=== PATIENT | male | born 2000 | race Caucasian/White ===

== ENCOUNTER 2019-07-11 13:21 | Inpatient (IN) ==
[2019-07-11 14:32] LABS: Basophils # (auto) 0.03 K/uL (0-0.2); Basophils % (auto) 0.4 %; Eosinophils # (auto) 0.11 K/uL (0-0.5); Eosinophils % (auto) 1.6 %; Hematocrit (blood only) 42.9 % (42-52); Hemoglobin 14.9 g/dL (14.0-18.0); Lymphocytes # (auto) 2.26 K/uL (1.2-3.4); Lymphocytes % (auto) 33.2 %; Mean Corpuscular Hgb Conc 34.7 g/dL (32-36); Mean Corpuscular Volume 86.3 fL (80-100); Mean Platelet Volume 10.7 fL (7.4-10.4); Monocytes % (auto) 8.8 %; Platelet Count 196 K/uL (130-400); RDW Coefficient of Variation 12.6 % (11.5-14.5); RDW Standard Deviation 39.9 fL (36.4-46.3); Red Blood Count 4.97 M/uL (4.7-6.1)
[2019-07-11 14:48] LABS: Albumin Level 4.9 gm/dl (3.4-5.0); BUN Creatinine Ratio 22.3 (10-20); Calcium 9.3 mg/dl (8.5-10.1); Est GFR (Non-African American) 107.9
[2019-07-11 14:59] LABS: Albumin Globulin Ratio 1.5 (0.9-2); Bilirubin,Total 1.2 mg/dl (0.2-1); Globulin 3.3 gm/dl (2.5-4.0); Total Protein 8.2 gm/dl (6.4-8.2)
[2019-07-11 15:00] LABS: Acetaminophen < 2 ug/ml (10-30); Salicylate < 1.7 mg/dl (2.8-20)
[2019-07-11 15:44] LABS: Appearance Urine Clear (Clear); Bilirubin Urine Negative (Negative); Blood Urine Negative (Negative); Color Urine Yellow; Glucose Urine UA Negative (Negative); Ketones Urine Trace (Negative); Leukocyte Esterase Urine Negative (Negative); Nitrite Urine Negative (Negative); Protein Urine Negative (Negative); Specific Gravity Urine 1.011 (1.000-1.030); Urobilinogen Urine Negative (Negative)
[2019-07-11 16:25] LABS: Amphetamines+Metham, Urine Neg (Neg); Barbiturates, Urine Neg (Neg); Benzodiazepine, Urine Neg (Neg); Cocaine, Urine Neg (Neg); MDMA (Ecstacy), Urine Neg (Neg); Methadone, Urine Neg (Neg); Opiate, Urine Neg (Neg); Phencyclidine, Urine Neg (Neg)
--- NOTE | 2019-07-11 16:47 | Emergency Department Note ---
Entered by Tammie Souza acting as a scribe for History of Present Illness General Chief complaint: Mental Health Evaluation Stated complaint: SUICIDAL THOUGHTS ECT Time Seen by Provider: 07/11/19 13:31 Source: patient History of Present Illness Provider complaint: mental evaluation Onset (ago): week(s) 1 Location: head Pain Consistency: + intermittent Maximum Pain Intensity: 0 Quality: + other (mental health ) Associated symptoms: + denies other symptoms The patient is a 18 y/o male w/ PMHx of depression and SI who presents to the ED for a mental health evaluation. The patient states that within the past week he has been feeling very depressed and having SI but this has been intermittent for the past year. The nurse notes that he was at [facility] recently. The patient notes that in the week he took a Xanax and hoped he would be able to jump off his balcony but did not go through with it and fell asleep with a knife in his hand. Last self-harm attempt was 3 days ago when he cut his ankle. Patient states that he is a student at [employer] but has not been stressed on campus. He notes that he used a juul, marijuana, Xanax, acid, and alcohol. The patient denies any other symptoms. He notes that he is sleeping but not eating much. Home Medications Home Medications Medication Instructions Recorded Confirmed Type clindamycin-benzoyl peroxide 1 applic TOPICAL DAILY 07/11/19 07/11/19 History tretinoin 1 applic TOPICAL HS 07/11/19 07/11/19 History Allergies Allergy/AdvReac Type Severity Reaction Status Date / Time poison sudarshan extract Allergy Intermediate Rash Verified 07/11/19 13:53 Bees Allergy Intermediate Redness of Uncoded 07/11/19 13:53 Skin Past Med/Surg History Medical History Depression Suicidal ideation Social History Preferred Language: Citizen Of [place] Feels Safe at Home: Yes Smoking Status: Never smoker Review of Systems See HPI for pertinent positives & negatives. and A total of 10 systems reviewed and were otherwise negative Physical Exam Vital Signs Vital Signs - 24 hr 07/11/19 13:26 07/11/19 15:07 Temperature 36.9 C Temperature Source Oral Sepsis Recent Fever Within 48 Hours No Sepsis Action Taken by Nursing No Action Required Pulse Rate 94 H Pulse Rate [Finger] 76 Pulse Rhythm Regular Pulse Strength Normal Respiratory Rate 16 20 Respiratory Effort / Characteristics Non-Labored Respiratory Depth Normal Respiratory Pattern Regular Blood Pressure 135/70 Blood Pressure [Right Arm] 142/63 H Blood Pressure Mean 91 Blood Pressure Mean [Right Arm] 89 Blood Pressure Position Sitting Pulse Oximetry 100 100 Oxygen Delivery Method Room Air Room Air GENERAL: Well appearing, well nourished, NAD, non-toxic. EYE EXAM: Normal conjunctiva. PERRL, no anisocoria and EOM's grossly intact w/o pain. OROPHARYNX: Moist mucus membranes. Grossly normal dentition. NECK: Supple, no nuchal rigidity, no adenopathy, non-tender. No signs of meningismus. LUNGS: Clear to auscultation. Normal chest wall mechanics. HEART: NSR, no MRG. ABDOMEN: Abdomen soft, non-tender, normo-active bowel sounds, no masses, no rebound or guarding. BACK: No CVA TTP. SKIN: No rashes and no bruising. UPPER EXTREMITIES: Upper extremities are grossly normal. LOWER EXTREMITIES: No pitting edema. No calf pain. NEURO EXAM: A&O x3, cranial nerves II-XII grossly intact, normal speech, moves all 4 extremities on command w/o issue. PSYCH: Positive SI, no HI and no AVH. Course 1357: Past medical records reviewed. The patient was evaluated in room A06. A complete history and physical exam was performed. 1629: The patient was admitted for inpatient psychiatric treatment. Medical Decision Making Medical Records Attestation: I reviewed the patient's medical records. Home Medications Current Medication List: was personally reviewed by ca Laboratory Data Attestation: I reviewed the patient's lab results. Result diagrams: 07/11/19 14:18 07/11/19 14:18 Lab Results 07/11/19 07/11/19 07/11/19 Range/Units 14:18 14:18 14:18 WBC 6.80 (4.8-10.8) K/uL RBC 4.97 (4.7-6.1) M/uL Hgb 14.9 (14.0-18.0) g/dL Hct 42.9 (42-52) % MCV 86.3 (80-100) fL MCH 30.0 (25-34) pg MCHC 34.7 (32-36) g/dL RDW Std Deviation 39.9 (36.4-46.3) fL RDW Coeff of Jamar 12.6 (11.5-14.5) % Plt Count 196 (130-400) K/uL MPV 10.7 H (7.4-10.4) fL Immature Gran % (Auto) 0.0 % Neut % (Auto) 56.0 % Lymph % (Auto) 33.2 % [place] % (Auto) 8.8 % Eos % (Auto) 1.6 % Baso % (Auto) 0.4 % Immature Gran # (Auto) 0.00 (0.00-0.02) K/uL Neut # (Auto) 3.80 (1.4-6.5) K/uL Lymph # (Auto) 2.26 (1.2-3.4) K/uL [place] # (Auto) 0.60 H (0.11-0.59) K/uL Eos # (Auto) 0.11 (0-0.5) K/uL Baso # (Auto) 0.03 (0-0.2) K/uL Sodium 139 (136-145) mmol/L Potassium 4.0 (3.5-5.1) mmol/L Chloride 104 (98-107) mmol/L Carbon Dioxide 27 (21-32) mmol/L Anion Gap 8.0 (3-11) BUN 22 H (7-18) mg/dl Creatinine 1.00 (0.6-1.4) mg/dl Est Cr Clr Drug Dosing 99.0 ml/min Est GFR ( Amer) 125.0 Est GFR (Non-Af Amer) 107.9 BUN/Creatinine Ratio 22.3 H (10-20) Glucose 89 (70-99) mg/dl Calcium 9.3 (8.5-10.1) mg/dl Total Bilirubin 1.2 H (0.2-1) mg/dl AST 19 (15-37) U/L ALT 20 (12-78) U/L Alkaline Phosphatase 43 L (45-117) U/L Total Protein 8.2 (6.4-8.2) gm/dl Albumin 4.9 (3.4-5.0) gm/dl Globulin 3.3 (2.5-4.0) gm/dl Albumin/Globulin Ratio 1.5 (0.9-2) TSH 1.110 (0.300-4.500) uIu/ml Urine Color Urine Appearance (Clear) Urine pH (4.5-7.5) Ur Specific [place] (1.000-1.030) Urine Protein (Negative) Urine Glucose (UA) (Negative) Urine Ketones (Negative) Urine Blood (Negative) Urine Nitrite (Negative) Urine Bilirubin (Negative) Urine Urobilinogen (Negative) Ur Leukocyte Esterase (Negative) Salicylates < 1.7 L (2.8-20) mg/dl Urine Opiates Screen (Neg) Ur Methadone, Qual (Neg) Acetaminophen < 2 L (10-30) ug/ml Urine Barbiturates (Neg) Ur Phencyclidine (PCP) (Neg) U Amphetamin/Meth Scrn (Neg) MDMA (Ecstasy) Screen (Neg) U Benzodiazepines Scrn (Neg) Ur Cocaine Metabolite (Neg) U Marijuana (THC) Screen (Neg) Ethyl Alcohol mg/dL (0-3) mg/dl 07/11/19 07/11/19 07/11/19 Range/Units 14:18 15:33 15:33 WBC (4.8-10.8) K/uL RBC (4.7-6.1) M/uL Hgb (14.0-18.0) g/dL Hct (42-52) % MCV (80-100) fL MCH (25-34) pg MCHC (32-36) g/dL RDW Std Deviation (36.4-46.3) fL RDW Coeff of Jamar (11.5-14.5) % Plt Count (130-400) K/uL MPV (7.4-10.4) fL Immature Gran % (Auto) % Neut % (Auto) % Lymph % (Auto) % [place] % (Auto) % Eos % (Auto) % Baso % (Auto) % Immature Gran # (Auto) (0.00-0.02) K/uL Neut # (Auto) (1.4-6.5) K/uL Lymph # (Auto) (1.2-3.4) K/uL [place] # (Auto) (0.11-0.59) K/uL Eos # (Auto) (0-0.5) K/uL Baso # (Auto) (0-0.2) K/uL Sodium (136-145) mmol/L Potassium (3.5-5.1) mmol/L Chloride (98-107) mmol/L Carbon Dioxide (21-32) mmol/L Anion Gap (3-11) BUN (7-18) mg/dl Creatinine (0.6-1.4) mg/dl Est Cr Clr Drug Dosing ml/min Est GFR ( Amer) Est GFR (Non-Af Amer) BUN/Creatinine Ratio (10-20) Glucose (70-99) mg/dl Calcium (8.5-10.1) mg/dl Total Bilirubin (0.2-1) mg/dl AST (15-37) U/L ALT (12-78) U/L Alkaline Phosphatase (45-117) U/L Total Protein (6.4-8.2) gm/dl Albumin (3.4-5.0) gm/dl Globulin (2.5-4.0) gm/dl Albumin/Globulin Ratio (0.9-2) TSH (0.300-4.500) uIu/ml Urine Color Yellow Urine Appearance Clear (Clear) Urine pH 6.0 (4.5-7.5) Ur Specific [place] 1.011 (1.000-1.030) Urine Protein Negative (Negative) Urine Glucose (UA) Negative (Negative) Urine Ketones Trace H (Negative) Urine Blood Negative (Negative) Urine Nitrite Negative (Negative) Urine Bilirubin Negative (Negative) Urine Urobilinogen Negative (Negative) Ur Leukocyte Esterase Negative (Negative) Salicylates (2.8-20) mg/dl Urine Opiates Screen Neg (Neg) Ur Methadone, Qual Neg (Neg) Acetaminophen (10-30) ug/ml Urine Barbiturates Neg (Neg) Ur Phencyclidine (PCP) Neg (Neg) U Amphetamin/Meth Scrn Neg (Neg) MDMA (Ecstasy) Screen Neg (Neg) U Benzodiazepines Scrn Neg (Neg) Ur Cocaine Metabolite Neg (Neg) U Marijuana (THC) Screen Pos H (Neg) Ethyl Alcohol mg/dL < 3.0 (0-3) mg/dl Blood Pressure Blood Pressure Findings: Elevated blood pressure Blood Pressure Disposition: Referred to patients primary care provider MDM Narrative differential includes toxic ingestions, self-mutilation, suicidal ideation, suicide attempt, depression. The patient is a 18 y/o male w/ PMHx of depression and SI who presents to the ED for a mental health evaluation. Patient was seen and evaluated the bedside. The patient did present with suicidal ideation substances. The patient is a student. The patient states he has been making to his classes. The patient has had poor appetite. Patient was medically cleared and seen by psych case reviewer. Patient was referred to [facility] and the patient was admitted for inpatient psychiatric treatment. Impression & Plan Suicidal ideation, Depressed mood, Substance abuse Discharge Plan Visit Data Chief Complaint: Mental Health Evaluation Stated Complaint: SUICIDAL THOUGHTS ECT ED Provider: Joao Dunbar Discharge Problem: Suicidal ideation, Depressed mood, Substance abuse Patient Disposition: Admitted As Inpatient Forms Stand Alone Forms: My [facility] Prescriptions Prescriptions: No Action tretinoin 0.025 % Cream 1 applic TOPICAL HS RF: 0 clindamycin-benzoyl peroxide 1-5 % Gel 1 applic TOPICAL DAILY RF: 0 Referrals Referrals: PCP,NO [Primary Care Provider] - The scribe's documentation has been prepared under my direction and personally reviewed by me in its entirety. I confirm that the note above accurately reflects all work, treatment, procedures, and medical decision making performed by me.
[2019-07-11] MEDS ORDERED: BISMUTH SUBSALICYLATE PER ML OMNICELL CHARGE PO PRN (17:28)
[2019-07-11] MEDS ORDERED: ALUMINUM/MAGNESIUM SUSP 30 ML UDC PO PRN (17:28)
[2019-07-11] MEDS ORDERED: MAGNESIUM HYDROXIDE SUSP 30 ML UDC PO PRN (17:28)
[2019-07-11] MEDS ORDERED: SODIUM CHLORIDE 0.65% NA SOLN 45 ML (OCEAN) PRN (17:28)
[2019-07-11] MEDS ORDERED: ACETAMINOPHEN 325 MG TAB PO PRN (17:28)
--- NOTE | 2019-07-12 09:42 | History & Physical ---
Date of Service July 12, 2019 Impression / Recommendations Impression The patient is a 18-year-old man who reports that he has been feeling depressed for approximately the past year and a half. He presents with fairly typical symptoms of depression including depressed mood, apathy, anergia, anhedonia, psychosocial withdrawal, irritable mood, insomnia, and thoughts of suicide. Although he acknowledges that recently he has been having nearly daily thoughts of suicide, these thoughts have generally been passive until about a week ago at which point he began to think specifically about killing himself by jumping off of an [facility]. The patient reports that he took a 2 mg "bar" of Xanax in an effort to give himself the encouraged to follow through on the plan to jump, but subsequently recognized that he, in fact, did not want to kill himself and decided not to jump. He notes that subsequent to this event he has not had further specific thoughts of suicide and notes that when he learned from the experience was that he, in fact, does want to live. Several factors may have contributed to the patient's depression. He cites an occurrence that happened approximately shelter through his freshman year where he and he discovered his good friend and roommate after the good friend and roommate had deliberately taken an overdose of Xanax (2 mg "bars"). He tells us that he was badly shaken and even traumatized by the experience of finding the roommate and friend unconscious and then having to call for help and contact the other young man's parents. Also, during his freshman year the patient was charged with underage drinking and had subsequent legal entanglements associated with this circumstance. In fact, he is still actively working to have the subsequent conviction expunged. Also, possibly contributing, is the fact that the patient is smoking marijuana, reportedly in limited amounts, on a daily basis at bedtime to help him sleep. 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 There is a family history of depression, and the patient indicates that his mother takes paroxetine for depression (and, possibly, anxiety) and he believes, but cannot confirm, that his mother has responded favorably to paroxetine. He has been in individual therapy with a local therapist that is based at [facility]," but evidently has not been referred, or else has not agreed to a psychiatric evaluation. He is not taking any psychiatric medications. Given the fact that the symptoms of depression have been present for a year and a half without relief, and after several months of individual therapy, I believe the antidepressant medications are indicated. Because of the patient's apparent positive association of paroxetine with recovery, I will start the patient on paroxetine 10 mg daily and titrate as indicated. Material risks and anticipated benefits of paroxetine were reviewed with the patient and he indicated understanding. (1) Suicidal ideation: 07/12/19 -The patient reports that he has been having daily or nearly daily thoughts of suicide, and within the past week developed a specific plan to jump off of a balcony. However, he tells us that he came to realize that he could not bring himself to commit suicide and wants to live. Today, he tells us that he is not having thoughts of suicide and we note that he is future oriented. -We are recommending at least 2 or 3 more days of psychiatric hospitalization in order to monitor the patient's mood, begin him on antidepressant medications, and further assess his actual risk for suicide given the behaviors that led to the psychiatric hospitalization. Present on Admission?: Yes (2) Substance abuse: 07/12/19 -The patient has a history of a conviction for underage drinking incurred about a year and a half ago. He tells us that he is continuing to consume alcohol 2 days a week (weekends) with friends, even though he is still underage. He has difficulty estimating his alcohol consumption amount, but appears to drink to the point of intoxication. He notes that he has no trouble stopping during the school/work week. -The patient also tells us that he has been using marijuana on a nightly basis ("about 2 tokes") in order to help himself fall asleep. He tells us that he does not use marijuana recreationally, other than occasionally. Present on Admission?: Yes (3) Depressed mood: 07/12/19 -The patient reports that he began to experience symptoms of depression approximately a year and a half ago, but the prior to that he has never been depressed. He does, however, report a family history of depression (mother). -He has found individual therapy to be somewhat helpful, but notes that his depression has continued to worsen over time. Accordingly, we are recommending the administration of an antidepressant medication. Given that his mother seems to have responded, or at least the patient believes that his mother may have responded to paroxetine, we will again paroxetine 10 mg daily and titrate as tolerated. Present on Admission?: Yes Inventory Assets Strengths: Seeks recovery. Supportive family. Supportive friends. Intelligent. Career oriented. Needs: Recovery from depression. Resolution of suicidal thoughts. Abstinence from alcohol and marijuana use. Risk Factors Assessment Family history of depression. School and work related stressors. (The patient is full-time and is also working part-time to help support himself.) Persistent depression. Reluctance to reach out to others regarding his depression and thoughts of suicide. On the other hand, the patient reports that he does have a good relationship with his therapist and is independently seeking treatment. 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 He give a 1.5 year history of depression, and was admitted on 07/11/19 17:29 on a 201 voluntary agreement because of suicidal thoughts with plan. Chief Complaint "I told my therapist something that I wish that I hadn't" History of Present Illness The patient is a 18-year-old man, currently a raj at [employer], who was admitted to the inpatient psychiatric emergency room through the emergency department where he presented at the recommendation of his outpatient therapist. The patient notes that he had told the outpatient therapist that 2 days earlier he had deliberately taken a "bar" of Xanax (2 mg) in order to give give himself encouraged to commit suicide by jumping off a balcony. The patient acknowledges that he has been having nearly daily thoughts of suicide, but formulated the plan fairly recently. Subsequent to taking the Xanax the patient realized that he did not want to end his life, change his mind, and simply went to sleep. 2 days later, he told his therapist of the suicidal thoughts and of the above referenced event, and it was determined that he should be psychiatrically hospitalized for further evaluation, observation and treatment. According to the patient, he has not had previous episodes of depression, although he notes that his mother has told him that she suspects that he may have suffered from depression while in raj high school. The patient, himself, notes that he does not believe that he was depressed at the time and feels that he had not been depressed until approximately a year and a half ago. He notes that in the second semester of his freshman year at [employer] he began to notice symptoms of depression that included initial insomnia, anhedonia, anergia, mood irritability, apathy, and psychosocial withdrawal. A precipitating factor, according the patient, was possibly the fact that around this time he had found a roommate (also a good friend) to be unconscious after the patient had been alerted by a third democrat that the roommate may have taken an overdose of Xanax. It was later determined that the roommate had, in fact, taken several 2 mg "bars" of Xanax. The patient handled the situation by immediately calling his roommate's parents, and they arrived and arranged for a psychiatric hospitalization. He notes that he was traumatized by the event and it was shortly thereafter that he began to notice depressed mood and other symptoms, as described above. The patient reports that the symptoms of his depression worsened gradually over the subsequent year and a half. Beginning last summer, he entered outpatient psychotherapy at a local program known as "[facility] Despite his persistent symptoms of depression, and despite the fact that his mother is being treated for depression (and anxiety) the patient evidently was not referred for a psychiatric evaluation and has not been given antidepressant medications. Possibly complicating the clinical picture is the fact that the patient acknowledges that he smokes marijuana "a couple tokes" nightly in order to sleep. He also acknowledges that he drinks alcohol with friends twice a week and, in fact, still has a pending underage drinking charge incurred in his freshman year at [employer]. Past Psychiatric History Previous Psych History: The patient has been followed by a therapist at a local organization known as "[facility]" over the course of the current summer. He reports that he has had no previous contact with the mental health community. He also reports that he has never taken any psychiatric medications. This is his first psychiatric hospitalization. There is no history of rosie, hypomania, OCD, anxious distress apart suffered from symptoms of depression, and no known history of panic episodes. Current Psychiatric Diagnosis: None Outpatient Services: The patient is followed by a therapist at a local organization known as, [facility] Previous Psych Admissions: The patient reports that this is his first psychiatric hospitalization Do You Have Access To A Gun?: No History of Previous Suicide Attempt: No (The patient reports that he has had "almost daily" passive thoughts of suicide without plan or intent until recently.) Past Medication Trials: None. Allergies Allergy/AdvReac Type Severity Reaction Status Date / Time poison sudarshan extract Allergy Intermediate Rash Verified 07/11/19 13:53 Bees Allergy Intermediate Redness of Uncoded 07/11/19 13:53 Skin Home Medications Home Medications Medication Instructions Recorded Confirmed Type clindamycin-benzoyl peroxide 1 applic TOPICAL DAILY 07/11/19 07/11/19 History tretinoin 1 applic TOPICAL HS 07/11/19 07/11/19 History Family History Family History of: Depression (Mother. The patient reports that he believes his mother takes "Paxil" for depression. He says that he cannot speak to the medications efficacy in her case but he has noticed that her depression has improved.), Anxiety and Doesn't Know Alcohol History Hx of Alcohol Use Over the Past 12 Months: Yes (Social drinking, weekends) AUDIT Total Score: 9 Smoking Use Have You Smoked or Used Tobacco Products in the Last 30 Days: Yes tobacco type: e-cigarettes Smoking Status: Current every day smoker Smoking packs per day: 1 Substance History Hx of Prescription Med Misuse Over the Past 12 Months: Yes (Hx of occassional Xanax use) Hx of Over the Counter Med Misuse Over the Past 12 Months: No Hx of Inhalent Misuse Over the Past 12 Months: No Hx of Organic Substance Use Over the Past 12 Months: Yes (Smokes marijuana daily) Hx of Illegal Substances/Street Drug Use Over Past 12 Months: No Problems as a Result of Past Substance Use: Arrested and Other (Daily use of marijuana, reportedly in limited quantities.) Problems as a Result of Past Substance Use Comments: The patient was charged with underage drinking and is currently working to have the charge expunged. Personal History Living Arrangements: Apartment Living Arrangements Comments: The patient tells me that he lives with several roommates, and that his roommates are good friends. Childhood: The patient tells us that he was born and raised in [place], [place]. His parents were not , but lived together for appro ximately 1 year after the patient was born and then . The patient has no recollection of his father being in the home, but he has maintained a fairly close relationship with his father and, more recently, with his father's (the patient's stepmother). The patient was raised by his mother, and he has 2 younger sisters who are still at home. 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 The friend survived, but the patient was traumatized by the experience. 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 Physical Exam Psychiatric: Orientation: alert and oriented x 3 Apperance: appropriately dressed Eye Contact: + fair eye contact The patient shifts his physical position frequently during the evaluation. Speech: normal rate/rhythm/volume of speech Affect: + anxious affect Mood: + depressed mood Thought Process: goal directed thought process, linear/logical thought process and clear/coherent thought process Thought Content: reality based without delusions Patient reports nearly daily suicidal thoughts, but has not had a suicidal plan, nor has he had suicidal intent until fairly recently. He notes that today, 3 days after he had contemplated jumping from a [facility] in order to commit suicide, and then realized that he did not actually want to , he tells us that he has no further thoughts of suicide Homicidal Thoughts: denies homicidal thoughts Hallucinations: no auditory hallucinations Cognition: recent memory grossly intact, remote memory grossly intact, attention grossly intact and language grossly intact Estimated Intelligence: + above average estimated intelligence Insight: + fair insight Judgement: + limited judgement The patient recognizes that he is suffering from major depression. He also understands his need for treatment and is willing to cooperate. At the same time, however, he seems to be determined not to tell his parents and, in particular, his mother that he is in the hospital. He explains this by saying that he does not want to "upset her," even though she is identified as 1 of his significant sources of support. Vital Signs (Past 24 Hours): Last Vital Signs Temp 36.5 C 07/12/19 06:40 Pulse 93 H 07/12/19 06:41 Resp 18 07/12/19 06:40 BP 116/63 07/12/19 06:41 Pulse Ox 96 07/11/19 17:45 Results & Data Laboratory Results Laboratory Results - last 24 hr 07/11/19 07/11/19 07/11/19 14:18 14:18 14:18 WBC 6.80 RBC 4.97 Hgb 14.9 Hct 42.9 MCV 86.3 MCH 30.0 MCHC 34.7 RDW Std Deviation 39.9 RDW Coeff of Jamar 12.6 Plt Count 196 MPV 10.7 H Immature Gran % (Auto) 0.0 Neut % (Auto) 56.0 Lymph % (Auto) 33.2 [place] % (Auto) 8.8 Eos % (Auto) 1.6 Baso % (Auto) 0.4 Immature Gran # (Auto) 0.00 Neut # (Auto) 3.80 Lymph # (Auto) 2.26 [place] # (Auto) 0.60 H Eos # (Auto) 0.11 Baso # (Auto) 0.03 Sodium 139 Potassium 4.0 Chloride 104 Carbon Dioxide 27 Anion Gap 8.0 BUN 22 H Creatinine 1.00 Est Cr Clr Drug Dosing 99.0 Est GFR ( Amer) 125.0 Est GFR (Non-Af Amer) 107.9 BUN/Creatinine Ratio 22.3 H Glucose 89 Calcium 9.3 Total Bilirubin 1.2 H AST 19 ALT 20 Alkaline Phosphatase 43 L Total Protein 8.2 Albumin 4.9 Globulin 3.3 Albumin/Globulin Ratio 1.5 TSH 1.110 Urine Color Urine Appearance Urine pH Ur Specific Story Urine Protein Urine Glucose (UA) Urine Ketones Urine Blood Urine Nitrite Urine Bilirubin Urine Urobilinogen Ur Leukocyte Esterase Salicylates < 1.7 L Urine Opiates Screen Ur Methadone, Qual Acetaminophen < 2 L Urine Barbiturates Ur Phencyclidine (PCP) U Amphetamin/Meth Scrn MDMA (Ecstasy) Screen U Benzodiazepines Scrn Ur Cocaine Metabolite U Marijuana (THC) Screen U Marijuana THC Carboxy Ethyl Alcohol mg/dL 07/11/19 07/11/19 07/11/19 14:18 15:33 15:33 WBC RBC Hgb Hct MCV MCH MCHC RDW Std Deviation RDW Coeff of Jamar Plt Count MPV Immature Gran % (Auto) Neut % (Auto) Lymph % (Auto) [place] % (Auto) Eos % (Auto) Baso % (Auto) Immature Gran # (Auto) Neut # (Auto) Lymph # (Auto) [place] # (Auto) Eos # (Auto) Baso # (Auto) Sodium Potassium Chloride Carbon Dioxide Anion Gap BUN Creatinine Est Cr Clr Drug Dosing Est GFR ( Amer) Est GFR (Non-Af Amer) BUN/Creatinine Ratio Glucose Calcium Total Bilirubin AST ALT Alkaline Phosphatase Total Protein Albumin Globulin Albumin/Globulin Ratio TSH Urine Color Yellow Urine Appearance Clear Urine pH 6.0 Ur Specific Story 1.011 Urine Protein Negative Urine Glucose (UA) Negative Urine Ketones Trace H Urine Blood Negative Urine Nitrite Negative Urine Bilirubin Negative Urine Urobilinogen Negative Ur Leukocyte Esterase Negative Salicylates Urine Opiates Screen Neg Ur Methadone, Qual Neg Acetaminophen Urine Barbiturates Neg Ur Phencyclidine (PCP) Neg U Amphetamin/Meth Scrn Neg MDMA (Ecstasy) Screen Neg U Benzodiazepines Scrn Neg Ur Cocaine Metabolite Neg U Marijuana (THC) Screen Pos H U Marijuana THC Carboxy Ethyl Alcohol mg/dL < 3.0 07/11/19 15:33 WBC RBC Hgb Hct MCV MCH MCHC RDW Std Deviation RDW Coeff of Jamar Plt Count MPV Immature Gran % (Auto) Neut % (Auto) Lymph % (Auto) [place] % (Auto) Eos % (Auto) Baso % (Auto) Immature Gran # (Auto) Neut # (Auto) Lymph # (Auto) [place] # (Auto) Eos # (Auto) Baso # (Auto) Sodium Potassium Chloride Carbon Dioxide Anion Gap BUN Creatinine Est Cr Clr Drug Dosing Est GFR ( Amer) Est GFR (Non-Af Amer) BUN/Creatinine Ratio Glucose Calcium Total Bilirubin AST ALT Alkaline Phosphatase Total Protein Albumin Globulin Albumin/Globulin Ratio TSH Urine Color Urine Appearance Urine pH Ur Specific Story Urine Protein Urine Glucose (UA) Urine Ketones Urine Blood Urine Nitrite Urine Bilirubin Urine Urobilinogen Ur Leukocyte Esterase Salicylates Urine Opiates Screen Ur Methadone, Qual Acetaminophen Urine Barbiturates Ur Phencyclidine (PCP) U Amphetamin/Meth Scrn MDMA (Ecstasy) Screen U Benzodiazepines Scrn Ur Cocaine Metabolite U Marijuana (THC) Screen U Marijuana THC Carboxy Pending Ethyl Alcohol mg/dL Current Inpatient Medications Current Inpatient Medications: Current Inpatient Medications Acetaminophen (Tylenol) 650 mg PO Q4H PRN PRN Reason: Headache or Minor Fever Stop: 08/10/19 17:27 Al Hydrox/Mg Hydrox/Simethicone (Maalox) 30 ml PO Q4H PRN PRN Reason: GI Upset Stop: 08/10/19 17:27 Bismuth Subsalicylate (Kaopectate) 15 ml PO PRN PRN PRN Reason: Loose Stool Stop: 08/10/19 17:27 Hydroxyzine HCl (Vistaril) 50 mg PO HSZ PRN PRN Reason: Insomnia Stop: 08/10/19 17:27 Hydroxyzine HCl (Vistaril) 25 mg PO Q4H PRN PRN Reason: Anxiety Stop: 08/10/19 17:27 Magnesium Hydroxide (Milk Of Magnesia) 30 ml PO DAILY PRN PRN Reason: Constipation Stop: 08/10/19 17:27 Paroxetine HCl (Paroxetine Hcl) 10 mg PO DAILY TREVON Stop: 08/11/19 09:29 Sodium Chloride (Orland Nasal) 1 - 2 sprays NA PRN PRN PRN Reason: Nasal Dryness/Congestion Stop: 08/10/19 17:27 CPT Code CPT Code Initial Hospital Care: [id number]
[2019-07-12] MEDS: PARoxetine HCl 10 MG TAB PO SCH (10:24)
[2019-07-13] MEDS: PARoxetine HCl 10 MG TAB PO SCH (09:14)
--- NOTE | 2019-07-13 19:18 | Psychiatric Progress Note ---
Date of Service July 13, 2019 Impression / Recommendations Impression The patient is a 18-year-old man who reports that he has been feeling depressed for approximately the past year and a half. He appears to be minimizing aspects oasis depression and his anxiety while acknowledging his usage of substances and his aims to pull back from doing so. He is rather ambivalent about the pail being rx'd and indicated aim to stop the med after discharge. However he does seem to be taking in psychoeducation and might be willing to consider staying on the med with sba underwriter not sure at this point. motivational interviewing and psychoeducation interventions seem to be helping with therapeutic alliance and with having pt consider next steps in his treatment. PT was aiming for only monthly appts with therapist though (bea concerns a rationale), with sba underwriter not sure if he is willing to see therapist more regularly. Pt appears to be wanting to know involve parents and is refusing family meeting with parents or others at this time (1) Suicidal ideation: 07/12/19 -The patient reports that he has been having daily or nearly daily thoughts of suicide, and within the past week developed a specific plan to jump off of a balcony. However, he tells us that he came to realize that he could not bring himself to commit suicide and wants to live. Today, he tells us that he is not having thoughts of suicide and we note that he is future oriented. -We are recommending at least 2 or 3 more days of psychiatric hospitalization in order to monitor the patient's mood, begin him on antidepressant medications, and further assess his actual risk for suicide given the behaviors that led to the psychiatric hospitalization. (2) Substance abuse: 07/12/19 -The patient has a history of a conviction for underage drinking incurred about a year and a half ago. He tells us that he is continuing to consume alcohol 2 days a week (weekends) with friends, even though he is still underage. He has difficulty estimating his alcohol consumption amount, but appears to drink to the point of intoxication. He notes that he has no trouble stopping during the school/work week. -The patient also tells us that he has been using marijuana on a nightly basis ("about 2 tokes") in order to help himself fall asleep. He tells us that he does not use marijuana recreationally, other than occasionally. (3) Depressed mood: 07/12/19 -The patient reports that he began to experience symptoms of depression approximately a year and a half ago, but the prior to that he has never been depressed. He does, however, report a family history of depression (mother). -He has found individual therapy to be somewhat helpful, but notes that his depression has continued to worsen over time. Accordingly, we are recommending the administration of an antidepressant medication. Given that his mother seems to have responded, or at least the patient believes that his mother may have re sponded to paroxetine, we will again paroxetine 10 mg daily and titrate as tolerated. 07/13/19 pt willing to continue paxil while on the unit, but wanting to delay increase to 20mg for now ("perhaps a week or so into taking it") while earlier in assessment indicated aim to stop it after discharge, sba underwriter not sure if pt is more open to taking it after today's assessment. aftercare as planned with aim for [employer] psychiatric med management appts and aim for therapy appts with [facility], encouraging more frequent therapy appts. motivational interviewing and addressingpt's presentation and how substance usage can be adding to his struggles depsite its attempts to help him Inventory Assets Strengths: Seeks recovery. Supportive family. Supportive friends. Intelligent. Career oriented. Needs: Recovery from depression. Resolution of suicidal thoughts. Abstinence from alcohol and marijuana use. 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 Review of Systems Sleep Information Total Hours of Sleep: 7.25 Sleep Comments: requested and received an hs prn dose of vistaril for sleep aid Meal Information Percent Meal Consumed - Breakfast: 100 Percent Meal Consumed - Lunch: 100 Percent Meal Consumed - Dinner: 100 Subjective Subjective Patient was seen & assessed and interval progress reviewed with nursing and social work. Pt expressed aiming to be discharge soon. He denied SI today. He endorsed tendency to get anxious and overwhelmed and that could possibly be depressed as well and that this leads to not taking care of thing he needs to be doing including school work and then feels worse and more stressed. He endorsed that last semester would take Xanax about 3 times a week to settle anxiety but would sometimes take with alcohol to get more intoxicated as well. He did not use during the summer break (only once in March ) and first reported usage since March was on Monday when had SI and was thinking the xanax usage might help him be able t o work up the nerve to attempt suicide. HE is weary that now that his source for Xanax is back in town that he might continue to use it despite p reference to not do so. He shared how has been wanting to pull back on cannabis usage and uses less intensely in general but still uses each evening with attempt to help him settle down. He endorsed using alcohol to get intoxicated more then to settle anxiety. He shared that he was aiming to stop paxil after discharge. He has been seeing his [facility] since May with this past appt being his 4th session and he was aiming for monthly appts per pt today. Pt denied SI today. He denied HI,, denied hypomanic symptoms, denied s/e to Paxil to date. Physical Exam Psychiatric Orientation: alert and oriented x 3 Apperance: appropriately dressed Eye Contact: + fair eye contact Speech: normal rate/rhythm/volume of speech Affect: + anxious affect Mood: + depressed mood Thought Process: goal directed thought process, linear/logical thought process and clear/coherent thought process Thought Content: reality based without delusions Homicidal Thoughts: denies homicidal thoughts Hallucinations: no auditory hallucinations Cognition: recent memory grossly intact, remote memory grossly intact, attention grossly intact and language grossly intact Estimated Intelligence: + above average estimated intelligence Insight: + fair insight Judgement: + limited judgement Vital Signs (Past 24 Hours) Last Vital Signs Temp 36.5 C 07/13/19 06:28 Pulse 84 07/13/19 06:28 Resp 14 07/13/19 06:28 BP 109/60 07/13/19 06:28 Pulse Ox 96 07/11/19 17:45 Results & Data Current Inpatient Medications Current Inpatient Medications: Current Inpatient Medications Acetaminophen (Tylenol) 650 mg PO Q4H PRN PRN Reason: Headache or Minor Fever Stop: 08/10/19 17:27 Al Hydrox/Mg Hydrox/Simethicone (Maalox) 30 ml PO Q4H PRN PRN Reason: GI Upset Stop: 08/10/19 17:27 Bismuth Subsalicylate (Kaopectate) 15 ml PO PRN PRN PRN Reason: Loose Stool Stop: 08/10/19 17:27 Hydroxyzine HCl (Vistaril) 50 mg PO HSZ PRN PRN Reason: Insomnia Stop: 08/10/19 17:27 Last Admin: 07/12/19 22:11 Dose: 50 mg Documented by: Hydroxyzine HCl (Vistaril) 25 mg PO Q4H PRN PRN Reason: Anxiety Stop: 08/10/19 17:27 Magnesium Hydroxide (Milk Of Magnesia) 30 ml PO DAILY PRN PRN Reason: Constipation Stop: 08/10/19 17:27 Paroxetine HCl (Paroxetine Hcl) 10 mg PO DAILY TREVON Stop: 08/11/19 09:29 Last Admin: 07/13/19 09:14 Dose: 10 mg Documented by: Sodium Chloride ([place] Nasal) 1 - 2 sprays NA PRN PRN PRN Reason: Nasal Dryness/Congestion Stop: 08/10/19 17:27 Mental Health & Subst Abuse Tx Psychiatrist Name of Psychiatrist: Daniel Rubio Psychiatrist's Date of Appointment with Psychiatrist: 07/30/19 Time of Appointment with Psychiatrist: 9am Psychiatric Appointment Comment: [address] [facility] [place] [id number] Therapist Name of Therapist: [facility] Therapist's Therapy Appointment Comment: [id number] [facility] [id number] Jig Builder Name of Jig Builder: [facility] Phone Number for Jig Builder: [phone] Date of Appointment with Jig Builder: 07/16/19 Time of Appointment with Jig Builder: 11:30am Case Management Appointment [facility]: [address] [facility] [id number] Post Discharge Appointments Primary Care Physician Name Of Family Doctor: [facility] Time of Appointment with PCP: Follow up as needed. Provider Appointment Comment: [address], [place] [address] Contact Information Discharge Discharge Address: [address] [place] [address], [place] [address] CPT Code CPT Code 90687 and 89043 16+ minutes supportive therapy as above
[2019-07-14] MEDS: PARoxetine HCl 10 MG TAB PO SCH (08:41)
--- NOTE | 2019-07-14 11:55 | Discharge Summary ---
Date of Service July 14, 2019 History of Present Illness The patient is a 18-year-old man, currently a [employer] at [employer], who was admitted to the inpatient psychiatric emergency room through the emergency department where he presented at the recommendation of his outpatient therapist. The patient notes that he had told the outpatient therapist that 2 days earlier he had deliberately taken a "bar" of Xanax (2 mg) in order to give give himself encouraged to commit suicide by jumping off a balcony. The patient acknowledges that he has been having nearly daily thoughts of suicide, but formulated the plan fairly recently. Subsequent to taking the Xanax the patient realized that he did not want to end his life, change his mind, and simply went to sleep. 2 days later, he told his therapist of the suicidal thoughts and of the above referenced event, and it was determined that he should be psychiatrically hospitalized for further evaluation, observation and treatment. According to the patient, he has not had previous episodes of depression, although he notes that his mother has told him that she suspects that he may have suffered from depression while in [employer]. The patient, himself, notes that he does not believe that he was depressed at the time and feels that he had not been depressed until approximately a year and a half ago. He notes that in the second semester of his freshman year at [employer] he began to notice symptoms of depression that included initial insomnia, anhedonia, anergia, mood irritability, apathy, and psychosocial withdrawal. A precipitating factor, according the patient, was possibly the fact that around this time he had found a roommate (also a good friend) to be unconscious after the patient had been alerted by a third democrat that the roommate may have taken an overdose of Xanax. It was later determined that the roommate had, in fact, taken several 2 mg "bars" of Xanax. The patient handled the situation by immediately calling his roommate's parents, and they arrived and arranged for a psychiatric hospitalization. He notes that he was traumatized by the event and it was shortly thereafter that he began to notice depressed mood and other symptoms, as described above. The patient reports that the symptoms of his depression worsened gradually over the subsequent year and a half. Beginning last summer, he entered outpatient psychotherapy at a local program known as [facility] Despite his persistent symptoms of depression, and despite the fact that his mother is being treated for depression (and anxiety) the patient evidently was not referred for a psychiatric evaluation and has not been given antidepressant medications. Possibly complicating the clinical picture is the fact that the patient acknowledges that he smokes marijuana "a couple tokes" nightly in order to sleep. He also acknowledges that he drinks alcohol with friends twice a week and, in fact, still has a pending underage drinking charge incurred in his freshman year at college. Physical Exam Vital Signs (Past 24 Hours) Last Vital Signs Temp 36.6 C 07/14/19 06:26 Pulse 78 07/14/19 06:26 Resp 16 07/14/19 06:26 BP 116/63 07/14/19 06:26 Pulse Ox 96 07/11/19 17:45 Principal Diagnosis Major Depressive Disorder Psychiatric Data Day of Discharge Assessment Bandar has been without Suicidal ideation, is forward thinking and addressing his stressors . He has increased his willingness to give paxil a full trial to see how it works for him. He is preferring to stay at 10mg a day for now till seen at [place] for psychiatric followup with potential to raise dose to 20mg a day at that time. He has been using Vistaril 50mg at bedtime to help fall asleep is open to taking this as needed once discharge., carina since was using cannabis to help with sleep previously. He was educated about using it at 25-50mg for insomnia concerns and for 25mg dose for acute severe anxiety. He is less depressed and less anxious and more motivated and is interested in continuing psychotherapy appts and is willing to have more frequent therapy aptps. He is willing to engage with mother about his attending therapy appts and to see if she can help out some with the copay expense. He is seeking discharge today and is considered safe and appropriate to be discharged. He is seeking to not use xanax and to pull away from his cannabis usage. He is aiming to contunint o address his constructive and non constructive coping strategies (including substance use) with his psychotherapist and his outpt psychiatric providers Transition of Care Transition Of Care Record: was reviewed with the patient Advance Directives Advance Directives Information Provided: Yes Advance Directives: No Mental Health Advance Directive: No Advance Directives on File: No Living Will: No Power of Transportation Sales Consultant: No Advance Directives Reason:: Declines as Mental Health Visit. 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 Relationships: Yes Supportive Family: Yes Good Rapport with Provider: Yes Absence of Any Risk Factors Above: No Tobacco Cessation at Discharge Tobacco Cessation Medication Prescribed at Discharge: Not Applicable/Non-Smoker Total Time Total Time Spent: Greater Than 30 Minutes Discharge Data Lab Results 07/11/19 07/11/19 07/11/19 14:18 14:18 14:18 WBC 6.80 RBC 4.97 Hgb 14.9 Hct 42.9 MCV 86.3 MCH 30.0 MCHC 34.7 RDW Std Deviation 39.9 RDW Coeff of Jamar 12.6 Plt Count 196 MPV 10.7 H Immature Gran % (Auto) 0.0 Neut % (Auto) 56.0 Lymph % (Auto) 33.2 [place] % (Auto) 8.8 Eos % (Auto) 1.6 Baso % (Auto) 0.4 Immature Gran # (Auto) 0.00 Neut # (Auto) 3.80 Lymph # (Auto) 2.26 [place] # (Auto) 0.60 H Eos # (Auto) 0.11 Baso # (Auto) 0.03 Sodium 139 Potassium 4.0 Chloride 104 Carbon Dioxide 27 Anion Gap 8.0 BUN 22 H Creatinine 1.00 Est Cr Clr Drug Dosing 99.0 Est GFR ( Amer) 125.0 Est GFR (Non-Af Amer) 107.9 BUN/Creatinine Ratio 22.3 H Glucose 89 Calcium 9.3 Total Bilirubin 1.2 H AST 19 ALT 20 Alkaline Phosphatase 43 L Total Protein 8.2 Albumin 4.9 Globulin 3.3 Albumin/Globulin Ratio 1.5 TSH 1.110 Urine Color Urine Appearance Urine pH Ur Specific [place] Urine Protein Urine Glucose (UA) Urine Ketones Urine Blood Urine Nitrite Urine Bilirubin Urine Urobilinogen Ur Leukocyte Esterase Salicylates < 1.7 L Urine Opiates Screen Ur Methadone, Qual Acetaminophen < 2 L Urine Barbiturates Ur Phencyclidine (PCP) U Amphetamin/Meth Scrn MDMA (Ecstasy) Screen U Benzodiazepines Scrn Ur Cocaine Metabolite U Marijuana (THC) Screen Ethyl Alcohol mg/dL 07/11/19 07/11/19 07/11/19 14:18 15:33 15:33 WBC RBC Hgb Hct MCV MCH MCHC RDW Std Deviation RDW Coeff of Jamar Plt Count MPV Immature Gran % (Auto) Neut % (Auto) Lymph % (Auto) [place] % (Auto) Eos % (Auto) Baso % (Auto) Immature Gran # (Auto) Neut # (Auto) Lymph # (Auto) [place] # (Auto) Eos # (Auto) Baso # (Auto) Sodium Potassium Chloride Carbon Dioxide Anion Gap BUN Creatinine Est Cr Clr Drug Dosing Est GFR ( Amer) Est GFR (Non-Af Amer) BUN/Creatinine Ratio Glucose Calcium Total Bilirubin AST ALT Alkaline Phosphatase Total Protein Albumin Globulin Albumin/Globulin Ratio TSH Urine Color Yellow Urine Appearance Clear Urine pH 6.0 Ur Specific [place] 1.011 Urine Protein Negative Urine Glucose (UA) Negative Urine Ketones Trace H Urine Blood Negative Urine Nitrite Negative Urine Bilirubin Negative Urine Urobilinogen Negative Ur Leukocyte Esterase Negative Salicylates Urine Opiates Screen Neg Ur Methadone, Qual Neg Acetaminophen Urine Barbiturates Neg Ur Phencyclidine (PCP) Neg U Amphetamin/Meth Scrn Neg MDMA (Ecstasy) Screen Neg U Benzodiazepines Scrn Neg Ur Cocaine Metabolite Neg U Marijuana (THC) Screen Pos H Ethyl Alcohol mg/dL < 3.0 Hospital Course (1) Suicidal ideation: 07/12/19 -The patient reports that he has been having daily or nearly daily thoughts of suicide, and within the past week developed a specific plan to jump off of a balcony. However, he tells us that he came to realize that he could not bring himself to commit suicide and wants to live. Today, he tells us that he is not having thoughts of suicide and we note that he is future oriented. -We are recommending at least 2 or 3 more days of psychiatric hospitalization in order to monitor the patient's mood, begin him on antidepressant medications, and further assess his actual risk for suicide given the behaviors that led to the psychiatric hospitalization. (2) Substance abuse: 07/12/19 -The patient has a history of a conviction for underage drinking incurred about a year and a half ago. He tells us that he is continuing to consume alcohol 2 days a week (weekends) with friends, even though he is still underage. He has difficulty estimating his alcohol consumption amount, but appears to drink to the point of intoxication. He notes that he has no trouble stopping during the school/work week. -The patient also tells us that he has been using marijuana on a nightly basis ("about 2 tokes") in order to help himself fall asleep. He tells us that he does not use marijuana recreationally, other than occasionally. (3) Depressed mood: 07/12/19 -The patient reports that he began to experience symptoms of depression approximately a year and a half ago, but the prior to that he has never been depressed. He does, however, report a family history of depression (mother). -He has found individual therapy to be somewhat helpful, but notes that his depression has continued to worsen over time. Accordingly, we are recommending the administration of an antidepressant medication. Given that his mother seems to have responded, or at least the patient believes that his mother may have responded to paroxetine, we will again paroxetine 10 mg daily and titrate as tolerated. 07/13/19 pt willing to continue paxil while on the unit, but wanting to delay increase to 20mg for now ("perhaps a week or so into taking it") while earlier in assessment indicated aim to stop it after discharge, press writer not sure if pt is more open to taking it after today's assessment. aftercare as planned with [facility] psychiatric med management appts and aim for therapy appts with [facility], encouraging more frequent therapy appts. motivational interviewing and addressingpt's presentation and how substance usage can be adding to his struggles depsite its attempts to help him Mental Health & Subst Abuse Tx Psychiatrist Name of Psychiatrist: Daniel Spicer - Amarilis Rubio Psychiatrist's Date of Appointment with Psychiatrist: 07/30/19 Time of Appointment with Psychiatrist: 9am Psychiatric Appointment Comment: [id number] [facility] [id number] Therapist Name of Therapist: [facility] - Graciela Therapist's Therapy Appointment Comment: [address] [facility] [address] Instructional Manager Name of Instructional Manager: [facility] - Pat Phone Number for Instructional Manager: [phone] Date of Appointment with Instructional Manager: 07/16/19 Time of Appointment with Instructional Manager: 11:30am Case Management Appointment Comment: [address] [facility], [place] [address] Post Discharge Appointments Primary Care Physician Name Of Family Doctor: [facility] Time of Appointment with PCP: Follow up as needed. Provider Appointment Comment: [address] , [place] [address] Smoking Cessation Counseling Tobacco Cessation Medication Prescribed at Discharge: Not Applicable/Non-Smoker Contact Information Discharge Discharge [address] [address] [place] [address], [place] [address] Discharge Plan Discharge Items Patient Disposition: Home - Self-Care Reason For Visit: MDD Discharge Diagnosis: Major Depressive Disorder, Single, Severe Discharge Goals: Improve disease control and Improve function Activity: Resume your previous activity Non-emergency contact: Primary Care Provider, Psychiatrist and Therapist Call non-emergency contact if: you have any medication questions and your symptoms worsen Follow-up/Referrals: PCP,NO [Primary Care Provider] - Diet: Regular Addtl Provider Instructions: SPECIAL CARE INSTRUCTIONS: 1. Follow through with your scheduled aftercare appointments. If unable to keep an appointment, please call to reschedule. 2. Take your medication only as prescribed. Medication should not be changed or stopped without the approval of your doctor. In the event of worsening symptoms or concerns about side effects, contact your doctor immediately. 3. Utilize new healthy coping skills, anger management skills, and stress management skills learned during your hospitalization. Journal feelings and process them with a support person. Identify stressors or situations that may result in relapse, deterioration or inappropriate behaviors and develop a plan to deal with those issues. 4. If your coping skills are ineffective and you are in crisis, contact your outpatient providers for direction. If unable to reach your providers, please call the CAN HELP LINE AT or go to the closest Emergency Room. 5. Avoid alcohol and un-prescribed drugs. 6. You have been provided with the Mental Health Advance Directives Pamphlet for your review. AFTERCARE APPOINTMENTS: * Please call your insurance company prior to your scheduled appointment to confirm your aftercare providers are covered. Take your insurance information to your appointments. WHO TO CALL AND WHEN: Medical Emergencies: For questions or emergencies related to your hospital stay, please contact the Inpatient Behavioral Health Unit at [phone]. A industrial relations officer is on-call 29/05 for the Behavioral Health Unit for emergencies At any time you feel your situation is an emergency, you may also call 911 immediately. Your Doctors Instructions noted above were prepared by provider Robin Alonzo MD. Prescriptions: New hydroxyzine HCl 25 mg Tablet See Rx Instructions .ROUTE .COMPLEX Qty: 30 RF: 0 paroxetine HCl 10 mg Tablet 10 mg PO DAILY Qty: 30 RF: 0 Continued tretinoin 0.025 % Cream 1 applic TOPICAL HS RF: 0 clindamycin-benzoyl peroxide 1-5 % Gel 1 applic TOPICAL DAILY RF: 0 Stand-Alone Forms: [facility] Discharge Orders: Discharge Order (Routine); Ordered 07/14/19 Ordered By: Robin Alonzo Admission Data Admit Date/Time: 07/11/19 17:29 Attending Provider: Sammy Jeffries Admit Provider: Vivienne Cloud Primary Care Provider: PCP,NO Service: Psychiatry Other Interventions: PSY Interdisciplinary Discharge Planning Last Done: 07/12/19 14:01 PSY Interdisciplinary Discharge Planning Last Done: 07/13/19 09:11 Pending Studies at Discharge: No
== END 2019-07-14 14:32 | disposition home or self-care (01) | DRG 881 ==
LOC: EDBD → ED 13:21 → 3S 17:29